=== PATIENT | male | born 1970 | race Caucasian/White ===

== ENCOUNTER 2022-03-20 14:11 | Emergency (ER) | payer OTHER ==
[~2022-03-20 14:11] MED LIST: IBUPROFEN800 MG PO
== END 2022-03-20 16:23 | disposition home or self-care (01) ==
LOC: ER1 14:11
DX: S13.9XXA Sprain of joints and ligaments of unspecified parts of neck, initial encounter (principal); V89.2XXA Person injured in unspecified motor-vehicle accident, traffic, initial encounter; Y92.410 Unspecified street and highway as the place of occurrence of the external cause
CPT/HCPCS: 71045; 72125; 73030; 99284